=== PATIENT | male | born 1980 | race Caucasian/White ===

== ENCOUNTER 2020-01-19 22:01 | Emergency (ER) | payer MEDICAID ==
[~2020-01-19] VITALS: Ht 177.8 cm; Wt 86.0 kg
[2020-01-19 22:23] VITALS: BP 131/80
[2020-01-19] MEDS ORDERED: HYDROCODONE/ACETAMINOPHEN 5/325MG TABLET PO ONE (23:30)
== END 2020-01-20 01:14 | disposition home or self-care (01) ==
LOC: ER 22:01
DX: S62.617A Displaced fracture of proximal phalanx of left little finger, initial encounter for closed fracture (principal); W22.01XA Walked into wall, initial encounter; Y93.9 Activity, unspecified; Y92.9 Unspecified place or not applicable
CPT/HCPCS: 29125; 73130; 99283